=== PATIENT | male | born 1995 | race Caucasian/White ===

== ENCOUNTER 2019-05-30 17:16 | Emergency (ER) | payer SELFPAY ==
[~2019-05-30] VITALS: Ht 190.5 cm; Wt 88.9 kg
--- NOTE | 2019-05-30 17:57 | ED EENT ---
History of Present Illness General Chief Complaint: Ear Problems Stated Complaint: R EAR PAIN Nursing Triage Note: Ambulatory to triage. Pt reports cleaning R ear today. Pt removed orange, red, brown wax. Pt reports then having fiance flush ear with distilled water. Since doing so pt reports pain and a "fuzzy" sound. Source: patient Exam Limitations: no limitations History of Present Illness Date Seen by Provider: May 30, 2019 Time Seen by Provider: 17:52 Initial Comments 24-year-old male patient presents to the emergency department on complaints of right ear pain after cleaning his ear with a Q-tip and his fiance flushing the ear with distilled water. Now reports "fuzzy" sounds and right ear pain. Timing/Duration: abrupt Location: ear (R) Prearrival Treatment: no prearrival treatment Presenting Symptoms/Injuries: right ear pain Modifying Factors: Worse With Other (worse with palpation) Allergies and Home Medications Allergies Coded Allergies: No Known Drug Allergies (Unverified , 05/30/19) Home Medications Amoxicillin 500 Mg Capsule, 500 MG PO TID Prescribed by: SKYLAR ENGEL on 05/30/19 4063 Patient Home Medication List Home Medication List Reviewed: Yes Review of Systems Review of Systems Constitutional: No chills, No dizziness, No fever, No malaise Eyes: No Symptoms Reported Ears: See HPI; Denies Dizziness; Pain; Denies Tinnitus, Denies Bloody Discharge, Denies Clear Discharge, Denies Purulent Discharge, Denies Serosanguinous Discharge Nose: no symptoms reported Mouth: no symptoms reported Throat: no symptoms reported Respiratory: no symptoms reported Cardiovascular: no symptoms reported Musculoskeletal: no symptoms reported Skin: no symptoms reported Neurological: No Symptoms Reported All Other Systems Reviewed Negative Unless Noted: Yes (Negative excepted noted.) Past Nbmygsq-Mxalpi-Wqeyvj Hx Past Med/Social Hx: Reviewed Nursing Past Med/Soc Hx Patient Social History Alcohol Use: Denies Use Recreational Drug Use: No (hx of marijuana) Smoking Status: Current Everyday Smoker Type Used: Cigarettes 2nd Hand Smoke Exposure: Yes Recent Foreign Travel: No Contact w/Someone Who Travel: No Recent Infectious Disease Expo: No Recent Hopitalizations: No Physical Abuse: No Sexual Abuse: No Seasonal Allergies Seasonal Allergies: No Past Medical History Surgeries: No Respiratory: Yes Asthma Cardiac: No Neurological: No Genitourinary: No Gastrointestinal: No Musculoskeletal: No Endocrine: No HEENT: No Cancer: No Psychosocial: Yes Anxiety Integumentary: No Blood Disorders: No Family Medical History Reviewed Nursing Family Hx No Pertinent Family Hx Physical Exam Vital Signs Vital Signs - First Documented 05/30/19 17:23 Temp 98.3 Pulse 88 Resp 15 B/P (MAP) 143/96 (112) Pulse Ox 97 O2 Delivery Room Air Height, Weight, BMI Height: 6'3.00" Weight: 196lbs. oz. 88.162385cc; BMI Method:Stated General Appearance: WD/WN, no apparent distress Eyes: bilateral eye normal inspection, bilateral eye PERRL, bilateral eye EOMI Ears: right ear other (abrasion to the right external ear canal without active bleeding. No TM perforation or erythema noted. No bulging or retractions.); left ear canal normal; bilateral ear auricle normal, bilateral ear TM normal Nose: normal inspection Mouth/Throat: normal mouth inspection, pharynx normal; No mandibular swelling, No maxillary swelling Neck: non-tender, full range of motion, supple, normal inspection Cardiovascular: regular rate, rhythm, no murmur Respiratory: lungs clear, normal breath sounds, no respiratory distress, no accessory muscle use Neurologic/Psychiatric: alert, normal mood/affect, oriented x 3 Skin: normal color, warm/dry Progress/Results/Core Measures Results/Orders My Orders Orders - SKYLAR ENGEL Rx-Ofloxacin 0.3% Ophth Soln (Rx-Ocuflox (05/30/19 20:00) Vital Signs/I&O 05/30/19 05/30/19 17:23 18:41 Temp 98.3 98.3 Pulse 88 88 Resp 15 15 B/P (MAP) 143/96 (112) 143/96 (112) Pulse Ox 97 97 O2 Delivery Room Air Room Air Blood Pressure Mean: 112 Departure Communication (Admissions) Patient seen and evaluated. Plan for discharge to home. Impression Primary Impression: Abrasion of right ear canal Qualified Codes: S00.411A - Abrasion of right ear, initial encounter Additional Impression: Dental caries Disposition: 01 HOME, SELF-CARE Condition: Improved Departure-Patient Inst. Decision time for Depature: 17:58 Referrals: NO,LOCAL PHYSICIAN (PCP/Family) Primary Care Physician Patient Instructions: Dental Pain (DC), Skin Abrasions Add. Discharge Instructions: All discharge instructions reviewed with patient and/or family. Voiced understanding. Medications as instructed. Tylenol extra strength pomw-qph-grogeoq as directed for pain. Ibuprofen 6 mg by mouth every 6-8 hours as needed for pain. Avoid using Q-tips in the ear canals for earwax removal. Use Debrox or Cerumenex as instructed by the personal investment adviser when needed. You do not currently have any earwax noted in the ear canals. Follow-up with your family practitioner of choice for recheck as an outpatient if needed. Follow-up with the dentist of your choice as an outpatient for dental repair. Return to the emergency department for worsened symptoms or any other concerns. Scripts Amoxicillin (Amoxicillin) 500 Mg Capsule 500 MG PO TID, #21 CAP 0 Refills Prov: SKYALR ENGEL 05/30/19 SKLYAR ENGEL May 30, 2019 17:57
[2019-05-30] MEDS ORDERED: AMOX500C2 PO (18:01)
[2019-05-30 18:41] VITALS: BP 143/96
[2019-05-30] MEDS ORDERED: RX-OFLOXACIN 0.3% OPHTH SOLN 5 ML OP SCH (20:00)
== END 2019-05-30 18:41 | disposition home or self-care (01) ==
LOC: ER 17:17
DX: S00.411A Abrasion of right ear, initial encounter (principal); K02.9 Dental caries, unspecified; J45.909 Unspecified asthma, uncomplicated; F41.9 Anxiety disorder, unspecified; F17.210 Nicotine dependence, cigarettes, uncomplicated; X58.XXXA Exposure to other specified factors, initial encounter
CPT/HCPCS: 99283

== ENCOUNTER 2019-06-14 00:22 | Emergency (ER) | payer SELFPAY ==
[~2019-06-14] VITALS: Ht 190.5 cm; Wt 88.9 kg
[~2019-06-14 00:22] MED LIST: AMOX500C2 PO
[2019-06-14] MEDS ORDERED: LACTATED RINGERS 1,000 ML IV ONE ×2 (01:53→02:27)
[2019-06-14 02:00] LABS: BILIRUBIN,URINE NEGATIVE (NEGATIVE); CLARITY,URINE CLEAR; COLOR,URINE YELLOW; GLUCOSE, URINE (UA) NEGATIVE (NEGATIVE); KETONES,URINE NEGATIVE (NEGATIVE); LEUKOCYTE ESTERASE ,URINE NEGATIVE (NEGATIVE); NITRITE,URINE NEGATIVE (NEGATIVE); PH,URINE 5 (5-9); PROTEIN,URINE NEGATIVE (NEGATIVE); UROBILINOGEN,URINE NORMAL (NORMAL)
--- NOTE | 2019-06-14 02:03 | ED GI ---
General Chief Complaint: Abdominal/GI Problems Stated Complaint: BLOATED, SEVERE HEADACHE, NAUSEA Source of Information: Patient Exam Limitations: No Limitations (JAYE GONZALEZ) History of Present Illness Date Seen by Provider: Jun 14, 2019 Time Seen by Provider: 01:40 Initial Comments Pt presents with bloating and diarrhea that started 4 days ago. He states the diarrhea is yellow and watery. He has been having an intermittent headache that started 2 days ago. He denies eating anything different, being at a BBQ, or drinking any [place] water prior to onset. He has some nausea but no vomiting. He has been able to eat very little and drink some water but not enough to keep up with the diarrhea. He took some ibuprofen for the headaches 6-7 hours ago that did help a little. He also reports being on otic antibiotics for an abrasion in his right ear that does still cause some pain. He denies any neck pain. Timing/Duration: 3-4 Days Severity/Quality: Moderate, Full Location: Generalized Abdomen Radiation: Back (Back pain) Activities at Onset: None Modifying Factors: Improves With Analgesics; Worsens With Eating Associated Symptoms: Back Pain, Headache, Nausea/Vomiting (Nausea) (JAYE GONZALEZ) Initial Comments Here with report of diarrhea for the last several days. States that it is watery and yellow. He finally had a little bit more formed stool this morning. Nobody else in the family currently has diarrhea although his child did have a diarrheal illness for a few days a few days ago. Does report headache. States that whenever he eats or drinks he has a diarrhea bowel movement. Timing/Duration: 3-4 Days Severity/Quality: Moderate, Cramping, Full Location: Generalized Abdomen Modifying Factors: Improves With Analgesics Associated Symptoms: Back Pain, Nausea/Vomiting (Nausea); No Rash (NESSA HAYNES MD) Allergies and Home Medications Allergies Coded Allergies: No Known Drug Allergies (Unverified , 05/30/19) Home Medications Amoxicillin 500 Mg Capsule, 500 MG PO TID Prescribed by: SKYLAR ENGEL on 05/30/19 1051 Patient Home Medication List Home Medication List Reviewed: Yes (NESSA HAYNES MD) Review of Systems Review of Systems Constitutional: No chills, No fever EENTM: No Blurred Vision; Ear Pain (abrasion in ear being treated with otic antibiotics); No Nose Congestion Respiratory: No Symptoms Reported; Denies Cough, Denies Shortness of Air Cardiovascular: No Symptoms Reported; Denies Chest Pain, Denies Palpitations Gastrointestinal: Abdomen Distended, Abdominal Pain, Diarrhea, Nausea; Denies Vomiting Genitourinary: No Symptoms Reported Musculoskeletal: see HPI, back pain; No neck pain Skin: no symptoms reported Psychiatric/Neurological: No Symptoms Reported Endocrine: No Symptoms Reported Hematologic/Lymphatic: No Symptoms Reported (JAYE GONZALEZ) Constitutional: see HPI Respiratory: No Symptoms Reported Cardiovascular: No Symptoms Reported Gastrointestinal: Diarrhea, Nausea Genitourinary: No Symptoms Reported (NESSA HAYNES MD) All Other Systems Reviewed Negative Unless Noted: Yes (NESSA HAYNES MD) Past Adovrzu-Huifrx-Tmjdzw Hx Past Med/Social Hx: Reviewed Nursing Past Med/Soc Hx (NESSA HAYNES MD) Patient Social History Type Used: Cigarettes 2nd Hand Smoke Exposure: Yes Recent Foreign Travel: No Contact w/Someone Who Travel: No Recent Hopitalizations: No (JAYE GONZALEZ) Seasonal Allergies Seasonal Allergies: No (JAYE GONZALEZ) Past Medical History Surgeries: No Respiratory: Yes Asthma Cardiac: No Neurological: No Genitourinary: No Gastrointestinal: No Musculoskeletal: No Endocrine: No HEENT: No Cancer: No Psychosocial: Yes Anxiety Integumentary: No Blood Disorders: No (JAYE GONZALEZ) Family Medical History Reviewed Nursing Family Hx (NESSA HAYNES MD) No Pertinent Family Hx (JAYE GONZALEZ) No Pertinent Family Hx (NESSA HAYNES MD) Physical Exam Vital Signs Capillary Refill : (JAYE GONZALEZ) Height/Weight/BMI Height: 6'3.00" Weight: 196lbs. oz. 88.451554fo; BMI Method:Stated General Appearance: WD/WN, mild distress HEENT: PERRL/EOMI, pharynx normal Neck: non-tender, normal inspection Respiratory: chest non-tender, lungs clear, normal breath sounds, no respiratory distress, no accessory muscle use Cardiovascular: regular rate, rhythm, no edema, no gallop, no JVD, no murmur Peripheral Pulses: 2+ Dorsalis Pedis (R), 2+ Left Dors-Pedis (L), 2+ Radial Pulses (R), 2+ Radial Pulses (L) Gastrointestinal: normal bowel sounds, non tender, no organomegaly, no pulsatile mass Extremities: no pedal edema, no calf tenderness Neurologic/Psychiatric: no motor/sensory deficits, alert, normal mood/affect, oriented x 3 Skin: normal color, warm/dry (CARLOS,JAYE MED STUDEN) General Appearance: WD/WN, mild distress HEENT: PERRL/EOMI, pharynx normal Respiratory: lungs clear, normal breath sounds Cardiovascular: regular rate, rhythm, no murmur Gastrointestinal: no organomegaly, no pulsatile mass, tenderness (right upper quadrant) Neurologic/Psychiatric: alert, oriented x 3 Skin: normal color, warm/dry (NESSA HAYNES MD) Progress/Results/Core Measures Results/Orders Lab Results Laboratory Tests Test 06/14/19 01:23 06/14/19 01:55 Range/Units Urine Color YELLOW Urine Clarity CLEAR Urine pH 5 5-9 Urine Specific [place] 1.025 H 1.016-1.022 Urine Protein NEGATIVE NEGATIVE Urine Glucose (UA) NEGATIVE NEGATIVE Urine Ketones NEGATIVE NEGATIVE Urine Nitrite NEGATIVE NEGATIVE Urine Bilirubin NEGATIVE NEGATIVE Urine Urobilinogen NORMAL NORMAL MG/DL Urine Leukocyte Esterase NEGATIVE NEGATIVE Urine RBC (Auto) NEGATIVE NEGATIVE Urine RBC NONE /HPF Urine WBC NONE /HPF Urine Squamous Epithelial Cells 0-2 /HPF Urine Crystals NONE /LPF Urine Bacteria NEGATIVE /HPF Urine Casts NONE /LPF Urine Mucus LARGE H /LPF Urine Culture Indicated NO White Blood Count 15.4 H 4.3-11.0 10^3/uL Red Blood Count 5.04 4.35-5.85 10^6/uL Hemoglobin 16.1 13.3-17.7 G/DL Hematocrit 45 40-54 % Mean Corpuscular Volume 90 80-99 FL Mean Corpuscular Hemoglobin 32 25-34 PG Mean Corpuscular Hemoglobin Concent 36 32-36 G/DL Red Cell Distribution Width 13.0 10.0-14.5 % Platelet Count 321 130-400 10^3/uL Mean Platelet Volume 9.3 7.4-10.4 FL Neutrophils (%) (Auto) 75 42-75 % Lymphocytes (%) (Auto) 13 12-44 % Monocytes (%) (Auto) 9 0-12 % Eosinophils (%) (Auto) 3 0-10 % Basophils (%) (Auto) 0 0-10 % Neutrophils # (Auto) 11.5 H 1.8-7.8 X 10^3 Lymphocytes # (Auto) 2.1 1.0-4.0 X 10^3 Monocytes # (Auto) 1.4 H 0.0-1.0 X 10^3 Eosinophils # (Auto) 0.5 H 0.0-0.3 10^3/uL Basophils # (Auto) 0.0 0.0-0.1 10^3/uL Neutrophils % (Manual) 76 % Lymphocytes % (Manual) 17 % Monocytes % (Manual) 5 % Eosinophils % (Manual) 1 % Band Neutrophils 1 % Blood Morphology Comment NORMAL Sodium Level 140 135-145 MMOL/L Potassium Level 4.2 3.6-5.0 MMOL/L Chloride Level 102 98-107 MMOL/L Carbon Dioxide Level 25 21-32 MMOL/L Anion Gap 13 5-14 MMOL/L Blood Urea Nitrogen 9 7-18 MG/DL Creatinine 1.01 0.60-1.30 MG/DL Estimat Glomerular Filtration Rate > 60 BUN/Creatinine Ratio 9 Glucose Level 97 70-105 MG/DL Calcium Level 10.1 8.5-10.1 MG/DL Corrected Calcium 8.5-10.1 MG/DL Total Bilirubin 0.5 0.1-1.0 MG/DL Aspartate Amino Transf (AST/SGOT) 14 5-34 U/L Alanine Aminotransferase (ALT/SGPT) 25 0-55 U/L Alkaline Phosphatase 82 40-136 U/L Total Protein 7.3 6.4-8.2 GM/DL Albumin 4.6 H 3.2-4.5 GM/DL (NESSA HAYNES MD) My Orders Orders - NESSA HAYNES MD Cbc With Automated Diff (06/14/19 01:53) Comprehensive Metabolic Panel (06/14/19 01:53) Ua Culture If Indicated (06/14/19 01:53) Stool Culture (06/14/19 01:53) Ed Iv/Invasive Line Start (06/14/19 01:53) Lactated Ringers (Lr 1000 Ml Iv Solution (06/14/19 01:53) Manual Differential (06/14/19 01:55) Ed Iv/Invasive Line Start (06/14/19 02:27) Lactated Ringers (Lr 1000 Ml Iv Solution (06/14/19 02:27) Ct Abdomen/Pelvis W (06/14/19 02:27) Metronidazole Tablet (Flagyl Tablet) (06/14/19 04:28) (NESSA HAYNES MD) Medications Given in ED Current Medications Medications Dose Ordered Sig/Melisa Route Start Time Stop Time Status Last Admin Dose Admin Lactated Ringer's 1,000 ml @ 0 mls/hr Q0M ONCE IV 06/14/19 01:53 06/14/19 01:55 DC 06/14/19 02:26 999 MLS/HR Lactated Ringer's 1,000 ml @ 0 mls/hr Q0M ONCE IV 06/14/19 02:27 06/14/19 02:28 DC 06/14/19 03:51 999 MLS/HR (NESSA HAYNES MD) Progress Progress Note : Time: 01:40 Progress Note Pt seen by me. He reports having diarrhea for 4 days and denies any blood in the stool. The diarrhea is associated with abdominal bloating, low back pain, and a headache. He is afebrile currently and states only a mild fever at home. I talked with Dr Haynes about the patient. He evaluated the patient and order a CBC, CMP, UA, Stool culture, and started 1L of LR. We will monitor patient and await lab results. (JAYE GONZALEZ) Progress Note : Progress Note I have seen and evaluated the patient. Above except as indicated. I have directed the plan of care. IV, labs, UA, stool culture, LR [address] abdomen and pelvis ordered as well as repeat LR 1 L bolus. 0435: Overall doing much better. CT does show some mild enteritis. We will go ahead and initiate Flagyl 500 mg by mouth and continue that 3 times a day for 5 days. Discharged home with return precautions. Patient verbalize understanding instructions and agreement with plan. (NESSA HAYNES MD) Departure Impression Primary Impression: Diarrhea Qualified Codes: R19.7 - Diarrhea, unspecified Additional Impression: Abdominal pain Qualified Codes: R10.84 - Generalized abdominal pain Disposition: 01 HOME, SELF-CARE Condition: Improved Departure-Patient Inst. Referrals: NO,LOCAL PHYSICIAN (PCP/Family) Primary Care Physician Patient Instructions: Acute Abdomen (Belly Pain), Adult (DC), Diarrhea in Adolescents and Adults, Dehydration, Adult (DC) Add. Discharge Instructions: All discharge instructions reviewed with patient and/or family. Voiced understanding. Take medications as directed. Follow-up with your Dr. in a few days for recheck. Drink plenty of fluids. Clear liquid diet for the next 24 hours and then advance as tolerated. Start light and then move up from there. Return for worse pain, fever, persistent vomiting, increasing diarrhea, blood in your vomit or stool or other concerns as needed. Scripts Metronidazole (Metronidazole) 500 Mg Tablet 500 MG PO TID, #15 TAB 0 Refills Prov: NESSA HAYNES MD 06/14/19 Work/School Note: Work Release Form Date Seen in the Emergency Department: Jun 14, 2019 Return to Work: Jun 15, 2019 Restrictions: No Restrictions [facility] Jun 14, 2019 02:03 NESSA HAYNES MD Jun 14, 2019 04:40
[2019-06-14 02:05] LABS: BASOPHILS % (AUTO) 0 % (0-10); EOSINOPHILS # (AUTO) 0.5 10^3/uL (0.0-0.3); EOSINOPHILS % (AUTO) 3 % (0-10); HEMATOCRIT 45 % (40-54); HEMOGLOBIN 16.1 G/DL (13.3-17.7); LYMPHOCYTES # (AUTO) 2.1 X 10^3 (1.0-4.0); LYMPHOCYTES % (AUTO) 13 % (12-44); MEAN CORPUSCULAR HEMOGLOBIN 32 PG (25-34); MEAN CORPUSCULAR HGB CONC 36 G/DL (32-36); MEAN CORPUSCULAR VOLUME 90 FL (80-99); MEAN PLATELET VOLUME 9.3 FL (7.4-10.4); MONOCYTES # (AUTO) 1.4 X 10^3 (0.0-1.0); MONOCYTES % (AUTO) 9 % (0-12); NEUTROPHILS # (AUTO) 11.5 X 10^3 (1.8-7.8); NEUTROPHILS % (AUTO) 75 % (42-75); PLATELET COUNT 321 10^3/uL (130-400); WHITE BLOOD COUNT 15.4 10^3/uL (4.3-11.0)
[2019-06-14 02:08] LABS: BACTERIA,URINE NEGATIVE /HPF; SQUAMOUS EPITHELIAL CELL,UR 0-2 /HPF
[2019-06-14 02:21] LABS: ALANINE AMINOTRANSFERASE 25 U/L (0-55); ALBUMIN 4.6 GM/DL (3.2-4.5); ALKALINE PHOSPHATASE 82 U/L (40-136); BILIRUBIN,TOTAL 0.5 MG/DL (0.1-1.0); BUN/CREATININE RATIO 9; CALCIUM 10.1 MG/DL (8.5-10.1); CARBON DIOXIDE 25 MMOL/L (21-32); CHLORIDE 102 MMOL/L (98-107); CREATININE SERUM 1.01 MG/DL (0.60-1.30); GFR ESTIMATED > 60; GLUCOSE 97 MG/DL (70-105); POTASSIUM 4.2 MMOL/L (3.6-5.0); SODIUM 140 MMOL/L (135-145); TOTAL PROTEIN 7.3 GM/DL (6.4-8.2)
[2019-06-14 02:34] LABS: BAND NEUTROPHILS 1 %; EOSINOPHILS % (MANUAL) 1 %; LYMPHOCYTES % (MANUAL) 17 %; MONOCYTES % (MANUAL) 5 %; NEUTROPHILS % (MANUAL) 76 %; RBC MORPH NORMAL
[2019-06-14] MEDS ORDERED: metroNIDAZOLE 500 MG (FLAGYL) TAB PO STA (04:28)
[2019-06-14] MEDS ORDERED: METR-145 PO (04:41)
[2019-06-14 04:50] VITALS: BP 129/80
--- NOTE | 2019-06-14 07:38 | Diagnostic Imaging Report ---
TECHNIQUE: Multiple contiguous axial images were obtained through the abdomen and pelvis after administration of intravenous contrast. Auto Exposure Controls were utilized during the CT exam to meet ALARA standards for radiation dose reduction. INDICATION: Diffuse abdominal bloating. Headaches. EXAMINATION: CT abdomen and pelvis with contrast dated 06/14/2019. FINDINGS: Mild fatty infiltration noted throughout the liver. The spleen, pancreas and adrenal glands are unremarkable. Gallbladder appears contracted. There is no acute process in either kidney. There is no ascites or free air. The appendix towards the upper limits of normal in size but no surrounding inflammatory change is seen. The remaining bowel loops demonstrate mild prominent enhancement along somewhat thickened small bowel wall in the right lower quadrant involving portions of the jejunum in the left mid abdomen. No obstructive process seen at this time. There is no free fluid or free air. No acute osseous abnormality is seen. IMPRESSION: 1. Somewhat abnormal appearing small bowel loops throughout the abdomen as described, most likely on the basis of enteritis. Please correlate with symptoms. 2. Other incidental findings as above. The findings do agree with the preliminary report. Dictated by: Dictated on workstation # [id number]
== END 2019-06-14 04:52 | disposition home or self-care (01) ==
LOC: EDUNIT# 00:22 → ER 00:24
DX: R19.7 Diarrhea, unspecified (principal); R10.84 Generalized abdominal pain; J45.909 Unspecified asthma, uncomplicated; F41.9 Anxiety disorder, unspecified; Z77.22 Contact with and (suspected) exposure to environmental tobacco smoke (acute) (chronic)
CPT/HCPCS: 36415; 74177; 80053; 81000; 85007; 85027; 87015; 87045; 87046; 87899

== ENCOUNTER 2020-03-15 21:13 | Emergency (ER) | payer MEDICAID ==
[~2020-03-15] VITALS: Ht 190 cm; Wt 93.8 kg
[~2020-03-15 21:13] MED LIST changes: +METR-145 PO
[2020-03-15 21:17] VITALS: BP 138/83
--- NOTE | 2020-03-15 21:29 | ED Upper Extremity ---
General Stated Complaint: R WRIST PAIN Source: patient Exam Limitations: no limitations History of Present Illness Date Seen by Provider: March 15, 2020 Time Seen by Provider: 21:25 Initial Comments To ER with pain over the ulnar styloid right wrist 1.5 months no known injury. Onset: just prior to arrival Severity: moderate Pain/Injury Location: right wrist Method of Injury: unknown Modifying Factors: Worse With Movement Allergies and Home Medications Allergies Coded Allergies: No Known Drug Allergies (Unverified , 05/30/19) Home Medications Amoxicillin 500 Mg Capsule, 500 MG PO TID Prescribed by: SKYLAR ENGEL on 05/30/19 1801 Metronidazole 500 Mg Tablet, 500 MG PO TID Prescribed by: NESSA GASPAR on 06/14/19 0441 Patient Home Medication List Home Medication List Reviewed: Yes Review of Systems Constitutional: see HPI EENTM: see HPI Respiratory: no symptoms reported Cardiovascular: no symptoms reported Genitourinary: no symptoms reported Musculoskeletal: see HPI Skin: no symptoms reported Psychiatric/Neurological: No Symptoms Reported Past Wtdvohy-Yzktgx-Nochkb Hx Patient Social History Type Used: Cigarettes 2nd Hand Smoke Exposure: Yes Recent Foreign Travel: No Contact w/Someone Who Travel: No Recent Hopitalizations: No Seasonal Allergies Seasonal Allergies: No Past Medical History Surgeries: No Respiratory: Yes Asthma Cardiac: No Neurological: No Genitourinary: No Gastrointestinal: No Musculoskeletal: No Endocrine: No HEENT: No Cancer: No Psychosocial: Yes Anxiety Integumentary: No Blood Disorders: No Family Medical History No Pertinent Family Hx Physical Exam Vital Signs Vital Signs - First Documented 03/15/20 21:17 Temp 37.0 Pulse 89 Resp 16 B/P (MAP) 138/83 (101) Pulse Ox 96 O2 Delivery Room Air Capillary Refill : Height, Weight, BMI Height: 6'3.00" Weight: 196lbs. oz. 88.119599az; BMI Method:Stated General Appearance: WD/WN, no apparent distress Shoulder: normal inspection, non-tender Wrist: Yes normal inspection, Yes pain Hand: normal inspection, non-tender, Right Neurologic/Psychiatric: alert, normal mood/affect, oriented x 3 Skin: normal color, warm/dry Progress/Results/Core Measures Results/Orders My Orders Orders - BESSIE PANDYA APRN Wrist-[place] (03/15/20 21:25) Wrist, Right, 3 Views Or More (03/15/20 21:25) Vital Signs/I&O 03/15/20 21:17 Temp 37.0 Pulse 89 Resp 16 B/P (MAP) 138/83 (101) Pulse Ox 96 O2 Delivery Room Air Departure Impression Primary Impression: Wrist pain Qualified Codes: M25.531 - Pain in right wrist Disposition: HOME, SELF-CARE Condition: Stable Departure-Patient Inst. Decision time for Depature: 21:27 Referrals: NO,LOCAL PHYSICIAN (PCP) Primary Care Physician KIM COLON MD, MICHAEL P MD Patient Instructions: NO INSTRUCTIONS GIVEN Add. Discharge Instructions: Continue to wear the brace. Anti-inflammatories like ibuprofen or naproxen as directed. Follow-up with Work/School Note: Work Release Form Date Seen in the Emergency Department: March 15, 2020 Return to Work: March 16, 2020 Other Restrictions Listed Below: brace to right wrist until realased. BESSIE PANDYA APRN March 15, 2020 21:29
--- NOTE | 2020-03-15 22:01 | Diagnostic Imaging Report ---
INDICATION: Ulnar-sided wrist pain, symptoms of one month. EXAMINATION: Right wrist. FINDINGS: Distal radius and ulna are intact. The carpus intact. No fracture or dislocation. No abnormal calcifications. No bony erosion. IMPRESSION: Unremarkable three-view right wrist series. Dictated by: Dictated on workstation # [id number]
--- OUTSIDE RECORDS SUMMARY | 2020-03-15 23:02 | XMS REPORT | Continuity of Care Document ---
Author Organization Unknown Address Unknown Phone Unavailable Allergies Active Description Code Type Severity Reaction Onset Reported/Identified Relationship to Patient Clinical Status Yes No Known Drug Allergies [id number] Drug Allergy Unknown N/A 05/30/2019 Medications There is no data. Problems Date Dx Coded Attending Type Code Diagnosis Diagnosed By 06/02/2019 SKYLAR VALLADARES Ot F17.210 NICOTINE DEPENDENCE, CIGARETTES, UNCOMPL 06/02/2019 SKYLAR VALLADARES Ot F41.9 ANXIETY DISORDER, UNSPECIFIED 06/02/2019 SKYLAR VALLADARES Ot H92.01 OTALGIA, RIGHT EAR 06/02/2019 SKYLAR VALLADARES Ot J45.909 UNSPECIFIED ASTHMA, UNCOMPLICATED 06/02/2019 SKYLAR VALLADARES Ot K02.9 DENTAL CARIES, UNSPECIFIED 06/02/2019 SKYLAR VALLADARES Ot S00.411A ABRASION OF RIGHT EAR, INITIAL ENCOUNTER 06/02/2019 SKYLAR VALLADARES Ot X58.XXXA EXPOSURE TO OTHER SPECIFIED FACTORS, INI 06/17/2019 NESSA GASPAR MD, Ot F41.9 ANXIETY DISORDER, UNSPECIFIED 06/17/2019 NESSA GASPAR MD Ot J45.909 UNSPECIFIED ASTHMA, UNCOMPLICATED 06/17/2019 NESSA GASPAR MD Ot R10.84 GENERALIZED ABDOMINAL PAIN 06/17/2019 NESSA GASPAR MD Ot R19.7 DIARRHEA, UNSPECIFIED 06/17/2019 NESSA GASPAR MD Ot Z77.22 CNTCT W AND EXPSR TO ENVIRON TOBACCO SMO Procedures There is no data. Results Test Result Range Complete urinalysis with reflex to cultu re - 06/14/19 01:23 Urine color determination YELLOW NRG Urine clarity determination CLEAR NR G Urine pH measurement by test strip 5 5-9 Specific gravity of urine by test strip 1.025 1.016-1.022 Urine protein assay by test strip, semi-quantitative NEGATIVE NEGATIVE Urine glucose detection by automated test strip NE GATIVE NEGATIVE Erythrocytes detection in urine sediment by light micr oscopy NEGATIVE NEGATIVE Urine ketones detection by automated test strip NE GATIVE NEGATIVE Urine nitrite detection by test strip NEGATIVE NEGATIVE Urine total bilirubin detection by test strip NEGA TIVE NEGATIVE Urine urobilinogen measurement by automated test strip (mass/volume) NORMAL NORMAL Urine leukocyte esterase detection by dipstick NEG ATIVE NEGATIVE Automated urine sediment erythrocyte cou nt by microscopy (number/high power field) NONE NRG Automated urine sediment leukocyte count by microscopy (number/high power field) NONE NRG Bacteria detection in urine sediment by light microsco py NEGATIVE NRG Squamous epithelial cells detection in u rine sediment by light microscopy 0-2 NRG Crystals detection in urine sediment by light microsco py NONE NRG Casts detection in urine sediment by light microscopy NONE NRG Mucus detection in urine sediment by light microscopy LARGE NRG Complete urinalysis with reflex to culture NO NRG Stool bacteria identification by culture - 06/14/19 01:23 QUANTITY OF GROWTH . NRG Stool bacteria identification by culture SEE COMME N NRG Complete blood count (CBC) with automate d white blood cell (WBC) differential - 06/14/19 01:55 Blood leukocytes automated count (number/volume) 15.4 10*3/uL 4.3-11.0 Blood erythrocytes automated count (number/volume) 5.04 10*6/uL 4.35-5.85 Venous blood hemoglobin measurement (mass/volume) 16.1 g/dL 13.3-17.7 Blood hematocrit (volume fraction) 45 % 40-54 Automated erythrocyte mean corpuscular volume 90 [ foz_us] 80-99 Automated erythrocyte mean corpuscular h emoglobin (mass per erythrocyte) 32 pg 25-34 Automated erythrocyte mean corpuscular h emoglobin concentration measurement (mass/volume) 36 g/dL 32-36 Automated erythrocyte distribution width ratio 13. 0 % 10.0- 14.5 Automated blood platelet count (count/volume) 321 10*3/uL 130-400 Automated blood platelet mean volume measurement 9.3 [foz_us] 7.4-10.4 Automated blood neutrophils/100 leukocytes 75 % 42-75 Automated blood lymphocytes/100 leukocytes 13 % 12-44 Blood monocytes/100 leukocytes 9 % 0-12 Automated blood eosinophils/100 leukocytes 3 % 0-10 Automated blood basophils/100 leukocytes 0 % 0-10 Blood neutrophils automated count (number/volume) 11.5 10*3 1.8-7.8 Blood lymphocytes automated count (number/volume) 2.1 10*3 1.0-4.0 Blood monocytes automated count (number/volume) 1. 4 10*3 0.0-1.0 Automated eosinophil count 0.5 10*3/uL 0 .0-0.3 Automated blood basophil count (count/volume) 0.0 10*3/uL 0.0-0.1 Comprehensive metabolic panel - 06/14/19 01:55 Serum or plasma sodium measurement (moles/volume) 140 mmol/L 135-145 Serum or plasma potassium measurement (moles/volume) 4.2 mmol/L 3.6-5.0 Serum or plasma chloride measurement (moles/volume) 102 mmol/L 98-107 Carbon dioxide 25 mmol/L 21-32 Serum or plasma anion gap determination (moles/volume) 13 mmol/L 5-14 Serum or plasma urea nitrogen measurement (mass/volume ) 9 mg/dL 7-18 Serum or plasma creatinine measurement (mass/volume) 1.01 mg/dL 0.60-1.30 Serum or plasma urea nitrogen/creatinine mass ratio 9 NRG Serum or plasma creatinine measurement w ith calculation of estimated glomerular filtration rate > NRG Serum or plasma glucose measurement (mass/volume) 97 mg/dL 70-105 Serum or plasma calcium measurement (mass/volume) 10.1 mg/dL 8.5-10.1 Serum or plasma total bilirubin measurement (mass/volu me) 0.5 mg/dL 0.1-1.0 Serum or plasma alkaline phosphatase disha surement (enzymatic activity/volume) 82 U/L 40-136 Serum or plasma aspartate aminotransfera se measurement (enzymatic activity/volume) 14 U/L 5-34 Serum or plasma alanine aminotransferase measurement (enzymatic activity/volume) 25 U/L 0-55 Serum or plasma protein measurement (mass/volume) 7.3 g/dL 6.4-8.2 Serum or plasma albumin measurement (mass/volume) 4.6 g/dL 3.2-4.5 Manual absolute plasma cell count - 05/21 04/07 01:55 Blood monocytes/100 leukocytes 5 % NRG Manual blood segmented neutrophils/100 leukocytes 76 % NRG Blood band neutrophils/100 leukocytes 1 % NRG Manual blood lymphocytes/100 leukocytes 17 % NRG Manual eosinophils/100 leukocytes in nose 1 % NRG Blood erythrocyte morphology finding identification NORMAL NRG Encounters ACCT No. Visit Date/Time Discharge Status Pt. Type Provider Facility Loc./Unit Complaint [id number] 06/14/2019 00:24:00 04:52:00 DIS Outpatient CHASITY GIL, NESSA Dominique [facility] ER BLOATED, SEVERE HEADACHE, NAUSEA [id number] 05/30/2019 17:17:00 019 18:41:00 DIS Outpatient SKYLAR VALLADARES [facility] ER R EAR PAIN/DISC HARGE
== END 2020-03-15 21:38 | disposition home or self-care (01) ==
LOC: EDUNIT# 21:13 → ER 21:15
DX: M25.531 Pain in right wrist (principal); Z77.22 Contact with and (suspected) exposure to environmental tobacco smoke (acute) (chronic)
CPT/HCPCS: 73110